=== PATIENT | male | born 1995 | race Two or more races ===

== ENCOUNTER 2017-01-15 17:30 | Emergency (ER) | payer OTHER ==
[2017-01-15] MEDS ORDERED: IBUPROFEN 600 MG TABLET (FP) PO ONE ×2 (17:34→17:47)
--- NOTE | 2017-01-15 17:50 | PDOC ---
History of Present Illness - General History Source: Patient Exam Limitations: No Limitations <Monica Garcia - Last Filed: 01/15/17 18:41> - General History Source: Patient, EMS Exam Limitations: No Limitations - History of Present Illness Initial Comments: 01/15/17 17:51 The patient is a 21 year old male, with no significant past medical history, who presents to the emergency room via EMS s/p being struck in the nose/ frontal forehead with a baseball. The patient states he was playing in a baseball game when he was struck with a fast flying baseball and reports moderate pain to the frontal forehead and nose. He reports he had a nosebleed that resolved prior to arrival at the ER. The patient reports a diffuse headache. The patient denies loss of consciousness, blurry vision or dizziness. He denies nausea, vomiting, diarrhea or constipation. He denies chest pain or shortness of breath. Allergies: NKA <Xavier Newton - Last Filed: 01/15/17 18:58> - General Chief Complaint: Injury Stated Complaint: FACIAL INJURY Time Seen by Provider: 01/15/17 17:33 Past History - Past Medical History Other medical history: DENIES - Suicide/Smoking/Psychosocial Hx Smoking History: Never smoked Hx Alcohol Use: No Drug/Substance Use Hx: No <Monica Garcia - Last Filed: 01/15/17 18:41> <Xavier Newton - Last Filed: 01/15/17 18:58> - Past Medical History Allergies/Adverse Reactions: Allergies Allergy/AdvReac Type Severity Reaction Status Date / Time No Known Allergies Allergy Verified 01/15/17 17:35 Home Medications: Ambulatory Orders Ibuprofen [Motrin -] 600 mg PO TID PRN #90 tablet MDD 3 01/15/17 Review of Systems - Review of Systems Comments:: 01/15/17 17:52 GENERAL/CONSTITUTIONAL: No fever or chills. No weakness. HEAD, EYES, EARS, NOSE AND THROAT: +Frontal forehead pain. +Nasal pain. No change in vision. No ear pain or discharge. No sore throat. CARDIOVASCULAR: No chest pain or shortness of breath. RESPIRATORY: No cough, wheezing, or hemoptysis. GASTROINTESTINAL: No nausea, vomiting, diarrhea or constipation. GENITOURINARY: No dysuria, frequency, or change in urination. MUSCULOSKELETAL: No neck or back pain. SKIN: No rash NEUROLOGIC: +Headache. No vertigo, loss of consciousness, or change in strength/ sensation. ENDOCRINE: No increased thirst. No abnormal weight change. HEMATOLOGIC/LYMPHATIC: No anemia, easy bleeding, or history of blood clots. ALLERGIC/IMMUNOLOGIC: No hives or skin allergy. <Xvaier Newton - Last Filed: 01/15/17 18:58> *Physical Exam - Vital Signs Last Vital Signs Temp Pulse Resp BP Pulse Ox 98.4 F 55 L 18 118/73 100 01/15/17 17:30 01/15/17 17:30 01/15/17 17:30 01/15/17 17:30 01/15/17 17:30 <Monica Garcia - Last Filed: 01/15/17 18:41> - Vital Signs Last Vital Signs Temp Pulse Resp BP Pulse Ox 98.4 F 55 L 18 118/73 100 01/15/17 17:30 01/15/17 17:30 01/15/17 17:30 01/15/17 17:30 01/15/17 17:30 - Physical Exam Comments: 01/15/17 17:52 GENERAL: Awake, alert, and fully oriented, HEAD: +Frontal forehead tender to palpation. +Large hematoma. EYES: +EOMA. PERRLA, sclera anicteric, conjunctiva clear ENT: +Top of nasal bridge engineer to palpation, ecchymosis and swelling. + Bilateral epistaxis. No septal hematoma. Auricles normal inspection, hearing grossly normal, oropharynx clear without exudates. Moist mucosa. No jaw malocclusions NECK: Normal ROM, supple, no lymphadenopathy, JVD, or masses LUNGS: Breath sounds equal, clear to auscultation bilaterally. No wheezes, and no crackles HEART: Regular rate and rhythm, normal S1 and S2, no murmurs, rubs or gallops ABDOMEN: Soft, nontender, normoactive bowel sounds. No guarding, no rebound. No masses EXTREMITIES: Atraumatic. Normal range of motion, no edema. No clubbing or cyanosis. No cords, erythema, or tenderness NEUROLOGICAL: GCS 15. Cranial nerves II through XII grossly intact. Normal speech, normal gait SKIN: Warm, Dry, normal turgor, no rashes or lesions noted. <Xavier Newton - Last Filed: 01/15/17 18:58> ED Treatment Course - RADIOLOGY Radiology Studies Ordered: Category Date Time Status FACIAL BONES CT W/O CONTRAST [CT] Stat CT Scan 01/15/17 17:[address] WITHOUT CONTRAST [CT] Stat CT Scan 01/15/17 17:34 Ordered <RadhaMonica - Last Filed: 01/15/17 18:41> - RADIOLOGY Radiograph Interpretation: 01/15/17 18:58 EXAM: CT HEAD HISTORY:Status post trauma. COMPARISON: None. FINDINGS:Axial CT scan of the brain was performed utilizing 4.5 mm thick slices from the base of the skull to the vertex of the skull. No intravenous contrast was administered. There is no evidence of midline shift or mass effect. No gross mass is identified. There is no evidence of hemorrhage or contusion. The ventricular system is unremarkable. No abnormal focus of low attenuation is identified within the brain parenchyma. There is mild opacification of portions of the visualized ethmoid, sphenoid, and frontal sinuses. The patient has a nasal fracture noted on CT scan of the facial bones performed the same time as this one. It cannot be accurately determined if this represents blood or sinus disease. The calvarium is intact. IMPRESSION: 1. Unremarkable noncontrast CT scan of the brain. 2. Mild opacification of portions of the visualized ethmoid, sphenoid, and frontal sinuses. The patient has a nasal fracture noted on CT scan of the facial bones performed the same time as this one. It cannot be determined if this represents blood or sinus disease. THIS DOCUMENT HAS BEEN ELECTRONICALLY SIGNED Phillip Marie MD - Medications Given in the ED: ED Medications Discontinued Medications Generic Name Dose Route Start Last Admin Trade Name Freq PRN Reason Stop Dose Admin Ibuprofen 600 mg 01/15/17 17:34 01/15/17 17:49 Motrin - PO 01/15/17 17:35 600 mg ONCE ONE Administration <Xavier Newton - Last Filed: 01/15/17 18:58> Medical Decision Making - Medical Decision Making 01/15/17 17:48 21 yo male with no pmhx here /sp facial injury. was hit in face with a baseball. happened just prior to arrival. gato loc. no n/v does have epistaxis. forehead and nasal bridge swelling. now mild headache. no change to vision. no new n/v or weakness. on exam awake alert . forehead hematoma, nasal bridge swelling. pos bilat epistaxis. no nasal septal hematoma. eyes PERRL. EOMI. no spinal tenderness. lungs clear bilatl. heart rrr nomrg. abd soft nt nd. ext wwp. atraumatic. nuero alert oriented x 3. GCS 15. moves all ext. plan : ct max/ facial due to concerns for frontal bone involvement. ct head. pain control ice compress. <Monica Garcia - Last Filed: 01/15/17 18:41> *DC/Admit/Observation/Transfer - Discharge Dispostion Admit: No <Monica Garcia - Last Filed: 01/15/17 18:41> - Attestations Scribe Attestion: 01/15/17 17:53 Documentation prepared by Xavier Newton, acting as diploma medical assistant for Monica Garcia MD. <Xavier Newton - Last Filed: 01/15/17 18:58> Diagnosis at time of Disposition: Nasal bone fracture - Discharge Dispostion Condition at time of disposition: Improved - Prescriptions Prescriptions: Ibuprofen [Motrin -] 600 mg PO TID PRN #90 tablet MDD 3 PRN Reason: Pain - Referrals Referrals: Kevon Ventura MD [Staff Physician] - - Patient Instructions Printed Discharge Instructions: Nose Fracture Additional Instructions: no nose blowing. ice to nose for 20 min twice daily. follow up with DR Ventura , call to schedule he is a plastic surgeon. return for any problems or concerns. you can take ibuprofen 600 mg every 8 hours as needed for pain. use afrin nasal spray each nostril daily x 3 days.
[2017-01-15 17:58] VITALS: BP 118/73; PULSE 55; TEMP 98.4; BMI 20.3
[2017-01-15] MEDS ORDERED: OXYMETAZOLINE 0.05% NASAL SOLUTION 15 ML BOTTLE NS ONE (18:40)
== END 2017-01-15 19:02 | disposition home or self-care (01) ==
LOC: FER 17:30
DX: S02.2XXA Fracture of nasal bones, initial encounter for closed fracture (principal); W22.8XXA Striking against or struck by other objects, initial encounter; Y93.89 Activity, other specified; Y92.9 Unspecified place or not applicable
CPT/HCPCS: 70450-TC; 70486-TC; 99283-25